=== PATIENT | female | born 1975 | race Hispanic/Latino ===

== ENCOUNTER 2022-07-08 14:40 | Outpatient (CLI) | payer SELFPAY ==
--- NOTE | ~2022-07-08 | US_ITS ---
EXAMINATION: US pelvic complete DATE: 07/08/2022 15:07 INDICATION: Pelvic pain Comparison:No prior studies for comparison. TECHNIQUE: Multiple transabdominal and endovaginal sonographic images of the pelvis performed. FINDINGS: The uterus is surgically absent. The ovaries are not visualized, possibly surgically absent or atrophic. There is no free fluid in the pelvis. There are no abnormal masses seen on either side. IMPRESSION: 1. Unremarkable pelvic ultrasound. Reviewed, dictated and finalized at location B.
== END 2022-07-08 14:41 ==
DX: R10.2 Pelvic and perineal pain (principal); N94.10 Unspecified dyspareunia; R32 Unspecified urinary incontinence
CPT/HCPCS: 76856

== ENCOUNTER 2022-09-29 00:27 | Emergency (ER) | payer MEDICAID, SELFPAY ==
[2022-09-29 00:57] VITALS: BP 140/72; PULSE 67; RESP 16; TEMP 36.2; O2SAT 95
--- NOTE | 2022-09-29 01:28 | ED.UPPEXIN ---
HPI - Extremity Injury (Upper) General Chief Complaint: Extremity Injury, Upper Stated Complaint: right arm pain Time Seen by Provider: 09/29/22 01:17 History of Present Illness HPI narrative: 47-year-old female presents to the emergency room for evaluation of right shoulder pain. Patient states that the pain began suddenly over the weekend after she was setting up for family libertarian. Patient states she uses her right arm for most activities. Works as a homemaker. Pain is worse with certain movements. Is not taking any medications to alleviate her symptoms. No known injury or trauma. Related Data Allergies Allergy/AdvReac Type Severity Reaction Status Date / Time No Known Allergies Allergy Verified 09/29/22 00:28 Review of Systems Review of Systems: CONSTITUTIONAL: Denies fever, chills, or sweats. EYES: Denies visual changes, redness, or discharge. ENT: Denies rhinorrhea, congestion, sore throat, or otalgia. CARDIOVASCULAR: Denies chest pain, palpitations, or edema. RESPIRATORY: Denies cough or dyspnea. GASTROINTESTINAL: Denies abdominal pain, nausea, vomiting, or diarrhea. GENITOURINARY: Denies dysuria or hematuria. SKIN: Denies rash or itching. MUSCULOSKELETAL: Reports right shoulder pain NEUROLOGIC: Denies headache, numbness, dizziness, or weakness. PSYCHIATRIC: Denies anxiety or depression. Exam Narrative: GENERAL: Well-appearing, well-nourished, no physical limitations, and in no acute distress. HEAD: Normocephalic, atraumatic. EYES: Conjunctivae normal, PERRLA and EOMI. CHEST: Clear to auscultation. No respiratory distress. No wheezes rales or rhonchi. HEART: Regular rate and rhythm. No murmur heard. Normal peripheral pulses. BACK: No cervical/thoracic/lumbar tenderness, step-offs, bony abnormality; FROM EXTREMITIES: Right shoulder: Tenderness extends from the deltoid to the supraspinatus to the superior trapezius muscle. Positive Neer test positive Ballesteros test. Limited range of motion with the shoulder. Neurovascular is intact distally. No obvious bony abnormalities. No ecchymosis or soft tissue swelling SKIN: Warm, dry, no rash. No noted wounds NEURO: No focal deficits. Alert and oriented x3. MAEW. CN's II-XI intact bilaterally, normal gait PSYCH: Cooperative. Normal mood and affect. Course Vital Signs Vital signs: Vital Signs Temperature 36.2 C L 09/29/22 00:57 Pulse Rate 67 09/29/22 00:57 Respiratory Rate 16 09/29/22 00:57 Blood Pressure 140/72 09/29/22 00:57 Pulse Oximetry 95 09/29/22 00:57 Oxygen Delivery Room Air 09/29/22 00:57 Temperature 36.2 C L 09/29/22 00:57 Pulse Rate 67 09/29/22 00:57 Respiratory Rate 16 09/29/22 00:57 Blood Pressure 140/72 09/29/22 00:57 Pulse Oximetry 95 09/29/22 00:57 Oxygen Delivery Room Air 09/29/22 00:57 Discharge Plan Discharge Clinical Impression: Impingement of right shoulder Patient Disposition: Home, Self-Care Condition: Stable Instructions: Antibiotic Form Additional Instructions: Follow-up with orthopedics in 1 to 2 weeks. May require a joint injection or physical therapy. Keep your arm in sling until you see orthopedics. Avoid any overhead activities. May apply ice to affected shoulder for 10 to 15 minutes 3-4 times a day. Patient Language: Armenian Prescriptions: New naproxen 500 mg tablet 500 mg PO BID Qty: 14 0RF methocarbamol 500 mg tablet 500 mg PO TID Qty: 30 0RF Follow-up/Referrals: PHYSICIAN NOT ON STAFF,NONSTAFF [Non-Staff] - Juliano Mills MD [Physician] - Time of Disposition: 01:34
[2022-09-29] MEDS: methocarbamoL 500 MG TABLET PO (01:33)
--- NOTE | 2022-09-29 02:06 | PC.NURSE ---
Assessment completed with use of interpretation services. Pt c/o right shoulder pain that started on Tuesday. ROM limited to pain. She cannot lift her arm above her head or across her chest. No known injury reported. Skin warm and dry. Radial pulse strong.
[2022-09-29 02:07] VITALS: BP 128/70; PULSE 77; RESP 20; O2SAT 98
== END 2022-09-29 02:08 | disposition home or self-care (01) ==
PROVIDERS: Emergency Provider Nurse Practitioner Family; PCP Emergency Medicine
DX: M75.41 Impingement syndrome of right shoulder (principal)
CPT/HCPCS: 96372; 99283; A4565; A9270; J1100

== ENCOUNTER 2024-08-30 08:21 | Day surgery (SDC) | payer OTHER, SELFPAY ==
[2024-07-06 07:12] VITALS: BMI 29.0
[2024-08-16 14:35] VITALS: BMI 28.2
--- NOTE | 2024-08-29 15:09 | P.PNAN_ITS ---
Anes - Initial Pre Proc Eval Procedure: Operation Date: 08/30/24 10:30 Proposed Procedures p Diagnostic Colonoscopy - Leroy Nicholson MD Date/Time: 08/29/24 15:09 Surgeon: Leroy Nicholson MD Pre Op Diagnosis: Hemorrhage of Anus and Rectum Patient Data Age: 49 Gender: F Height: 1.65 m Weight: 77 kg Allergies Allergy/AdvReac Type Severity Reaction Status Date / Time No Known Allergies Allergy Verified 08/30/24 08:59 Home Medications ?Medication ?Instructions ?Recorded ?Confirmed ?Type naproxen 500 mg tablet 500 mg PO BID #14 tabs 09/29/22 08/30/24 Rx losartan 50 mg tablet 50 mg PO DAILY 06/14/24 08/30/24 History Patient hx anesthesia problems: none Family hx anesthesia problems: none Results Review: All pre-operative results and documents have been reviewed as part of the pre- operative evaluation. FOR[facility] Past Medical History Medical History (Updated 08/29/24 @ 15:09 by Travis Mejias, ) Hypertension Social History Social History Smoking status: Current every day smoker Tobacco type: cigarettes Alcohol intake: current Substance use: never Substance use type: does not use Living arrangements: with family Spiritual care concerns: No Anes - Eval Final PreProcedure Day of Procedure 08/29/24 15:09 Patient weight: overweight Heart: regular rate and rhythm Lungs: clear to auscultation Airway: Mallampati scale class II Neurological: alert and oriented Last oral intake: >/= 8 hours ASA classification: II Emergent: no Anesthetic plan: proceed Anesthesia type and monitoring: general GIVS and standard monitoring Results Review: All pre-operative results and documents have been reviewed as part of the pre- operative evaluation. Informed Consent: The patient's anesthetic plan and its attendant risks and benefits were discussed with the patient/family/POA. Questions were solicited and answers provided to the satisfaction of the patient/family/POA.
[2024-08-30 09:12] VITALS: BMI 29.1
[2024-08-30 09:13] VITALS: BP 127/84; PULSE 67; RESP 16; TEMP 36.3; O2SAT 99
--- NOTE | 2024-08-30 09:36 | PM.HPGS ---
History of Present Illness History of Present Illness Consent: Risks, benefits, and alternatives have been discussed and questions answered. Patient agrees to proceed with procedure. Chief complaint: Hemorrhage of Anus and Rectum Narrative: Liss Gutierrez is a 49 year old female presents for colonoscopy. Patient speaks Bulgarian. History is obtained with the assistance of her family. Patient has had long tendency towards constipation. When passing hard stools she has rectal pain. She Tends to have blood in her stools associated with this. Is any weight loss. Recently seen in the GI office she was advised to take fiber supplement such as Benefiber along with MiraLax. She states this is not yet had significant impact on her constipated stools. Family history is noncontributory. Patient presents today for colonoscopy to assess more thoroughly. Review of Systems Review of Systems: All systems reviewed & are unremarkable except as noted in HPI and below PMFSH Past Medical History Medical History (Updated 08/29/24 @ 15:09 by Travis Mejias, ) Hypertension Social History Social History Smoking status: Current every day smoker Tobacco type: cigarettes Alcohol intake: current Substance use: never Substance use type: does not use Living arrangements: with family Spiritual care concerns: No Meds Home Medications and Allergies Home Medications ?Medication ?Instructions ?Recorded ?Confirmed ?Type naproxen 500 mg tablet 500 mg PO BID #14 tabs 09/29/22 08/30/24 Rx losartan 50 mg tablet 50 mg PO DAILY 06/14/24 08/30/24 History Allergies Allergy/AdvReac Type Severity Reaction Status Date / Time No Known Allergies Allergy Verified 08/30/24 08:59 Vital Signs Vital Signs - 24 hr 08/30/24 09:13 Temperature 97.3 F L Pulse Rate 67 Respiratory Rate 16 Blood Pressure 127/84 Pulse Oximetry 99 Oxygen Delivery Room Air Exam Narrative: Physical exam reveals patient signs stable. HEENT exam is unremarkable. Patient is anicteric. Lungs are clear to auscultation and to percussion. Heart is without murmur or extra sounds. Abdomen bowel sounds are present soft nontender with no organomegaly. Digital external rectal exam does confirm the presence of hemorrhoids. Assessment and Plan Assessment and plan (1) Rectal bleeding: Code(s): K62.5 - Hemorrhage of anus and rectum Status: Acute Assessment and Plan: Patient with rectal bleeding and rectal discomfort appears to be associated with constipation. Agree with routine use of MiraLax and fiber supplementation. Colonoscopy to be performed today to exclude and evaluate for organic disease.
[2024-08-30] MEDS: LACTATED RINGERS 1,000 ML 150 ML IV CONT (09:39)
[2024-08-30 10:39] VITALS: BP 108/55; PULSE 67; RESP 14; O2SAT 98
[2024-08-30 10:49] VITALS: BP 119/65; PULSE 60; RESP 14; O2SAT 98
[2024-08-30 10:59] VITALS: BP 111/75; PULSE 57; RESP 16; O2SAT 99
--- NOTE | 2024-08-30 11:18 | SUR.PHASEII ---
Patient denies need for lean consultant for discharge instructions. Daughter is present and speaks fluent Mohawk. Patient and daughter deny any further questions at time of discharge. Instructed to call with any questions or concerns.
--- NOTE | 2024-08-30 11:29 | WPDANESPN ---
Anes - Prog Note Post-Op Date/Time: 08/30/24 11:29 Cardiovascular status: normal Respiratory status: normal Airway patency: baseline Mental status: baseline Post-Op hydration status: normal Vital Signs: Last Vital Signs Temp 36.3 C L 08/30/24 09:13 Pulse 57 L 08/30/24 10:59 Resp 16 08/30/24 10:59 BP 111/75 08/30/24 10:59 Pulse Ox 99 08/30/24 10:59 O2 Del Method Room Air 08/30/24 10:59 Pain Score (VAS): 0 I/O: Intake & Output 08/29/24 08/30/24 08/30/24 23:59 07:59 15:59 Intake Total 700 Balance 700 Post-procedural complaints: none Patient Feedback: Patient satisfied with anesthetic care. Other Findings: Patient vital signs back to baseline. Patient denies nausea and vomiting. Patient's pain under control. Patient OK for discharge.
== END 2024-08-30 11:24 | disposition home or self-care (01) ==
PROVIDERS: PCP Internal Medicine Gastroenterology; Visit Provider Internal Medicine Gastroenterology
PROC: 0DJD8ZZ Inspection of Lower Intestinal Tract, Via Natural or Artificial Opening Endoscopic (ICD-10-PCS; CPT 45378; principal; 2024-08-30 10:30)
DX: K62.5 Hemorrhage of anus and rectum (principal); K59.00 Constipation, unspecified; K64.8 Other hemorrhoids
CPT/HCPCS: 45378